=== PATIENT | male | born 1940 | race Caucasian/White ===

== ENCOUNTER → 2016-09-24 | Outpatient (CLI) | payer OTHER | LOC: BHFA 13:15 | PROVIDERS: ATTEND Internal Medicine Cardiovascular Disease | DX: I49.9 Cardiac arrhythmia, unspecified (principal) ==

== ENCOUNTER 2017-03-08 12:05 | Emergency (ER) | payer OTHER ==
[2017-03-08 12:22] VITALS: RESP 16; TEMP 97.7
--- NOTE | 2017-03-08 13:36 | EDPHY ---
H & P Stated Complaint: Pt. states was bit(RFA) by dog walking toward [facility] [place] [employer] [place] [employer] Time Seen by Provider: 03/08/17 12:10 HPI/ROS: Chief Complaint: Dog bite right forearm HPI: 76-year-old male was out walking today when the dog that was sitting on a porch ran up to him and bit him on his right forearm. He sustained a large laceration. Is up-to-date in his tetanus. Denies any other injuries. Police have been informed. ROS: 10 point Review of Systems is negative except as noted in the HPI. Past medical history: Atrial fibrillation Medications: Warfarin Social History: [No] smoking, occasional alcohol, [ no recreational drug use] Family History: [non-contributory] Physical Exam: General: Awake alert, no acute distress Right arm. He has a large skin tear into the subcutaneous fat that is approximately 15 by 7 cm. There is no obvious break in the muscle fascia. There is no active bleeding. No bony tenderness., full flexion extension of his elbow and wrist. No foreign bodies noted. Skin: No rash - Personal History Current Tetanus Diphtheria and Acellular Pertussis (TDAP): Yes Tetanus Vaccine Date: 2015 - Medical/Surgical History Hx Asthma: No Hx Chronic Respiratory Disease: No Hx Diabetes: No Hx Cardiac Disease: No Hx Renal Disease: No Hx Cirrhosis: No Hx Alcoholism: No Hx HIV/AIDS: No Hx Splenectomy or Spleen Trauma: No Other PMH: Med hx-a-fib,basal cell carcinoma tip of nose. Surg-rt ankle,appy - Social History Smoking Status: Never smoked Constitutional: Initial Vital Signs Temperature (C) 36.5 C 03/08/17 12:11 Heart Rate 68 03/08/17 12:11 Respiratory Rate 16 03/08/17 12:11 Blood Pressure 146/89 H 03/08/17 12:11 O2 Sat (%) 96 03/08/17 12:11 O2 Delivery Mode Room Air Allergies/Adverse Reactions: No Known Allergies Allergy (Verified 03/08/17 12:09) Home Medications: Medication Instructions Recorded Amoxicillin/Clavulanate Pot 875 mg PO BID #14 tab 03/08/17 [Augmentin 875 MG TAB (*)] Flecainide Acetate 03/08/17 Herbals/Supplements -Info Only 03/08/17 Hydrocodone/Acetaminophen 1 - 2 each PO Q4-6PRN PRN #10 03/08/17 [Hydrocodon-Acetaminophen 5-325] tablet Metoprolol Succinate 03/08/17 Warfarin Sodium [Coumadin] 03/08/17 Medical Decision Making Procedures: Procedure: Laceration repair. Verbal consent was obtained from the patient. The 15 cm complex laceration on the right forearm was anesthetized in the usual fashion. The wound was irrigated, draped and explored to its base with a gloved finger. There were no deep structures involved. No tendon injury was identified. Extensive undermining was required to approximate the wound edges. The wound was repaired with 6, 4-0 Ethilon horizontal mattress sutures and 6, 4 0 Ethilon simple interrupted sutures. The wound repair was complex due to extensive tissue defect and requirements of undermining. The procedure was performed by myself. Departure - Departure Disposition: Home, Routine, Self-Care Clinical Impression: Laceration, Dog bite of extremity Condition: Good Instructions: Animal Bite (ED) Additional Instructions: Follow up with Dr. Burk, plastic surgery, in 2-3 days for re-evaluation, leave the dressing in place until your seen by Plastic surgery. Please take your full course of antibiotics. Return to the emergency depart for increasing pain, redness, fevers, chills, streaking up her arm, or any other concerns. Referrals: STACIE BURLESON [Medical Doctor] - As per Instructions CHRISTINE FERRER [Medical Doctor] - As per Instructions Briseida Lake DO [Primary Care Provider] - As per Instructions Smith Burk JR, MD [Medical Doctor] - As per Instructions Prescriptions: Amoxicillin/Clavulanate Pot [Augmentin 875 MG TAB (*)] 875 mg PO BID #14 tab Hydrocodone/Acetaminophen [Hydrocodon-Acetaminophen 5-325] 1 - 2 each PO Q4- 6PRN PRN #10 tablet PRN Reason: Pain, Severe
[2017-03-08 14:21] VITALS: BP 159/94; PULSE 75; O2SAT 95
== END 2017-03-08 13:50 | disposition home or self-care (01) ==
LOC: CED 12:05
PROC: 0HQDXZZ Repair Right Lower Arm Skin, External Approach (ICD-10-PCS; principal; 2017-03-08)
DX: S51.851A Open bite of right forearm, initial encounter (principal); S51.821A Laceration with foreign body of right forearm, initial encounter; Z79.01 Long term (current) use of anticoagulants; W54.0XXA Bitten by dog, initial encounter; Y93.01 Activity, walking, marching and hiking